=== PATIENT | female | born 1945 | race Caucasian/White ===

== ENCOUNTER 2017-11-04 15:06 | Emergency (ER) | payer OTHER ==
[~2017-11-04] VITALS: Ht 165.1 cm; Wt 86.2 kg
[2017-11-04] MEDS ORDERED: IBUPROFEN 200 MG TAB PO ONE (15:30)
[2017-11-04] MEDS ORDERED: ONDANSETRON HCL INJ 2 MG/ML VIAL IV ONE (15:30)
[2017-11-04] MEDS ORDERED: ACETAMINOPHEN 325 MG TAB PO ONE (15:30)
[2017-11-04] MEDS ORDERED: ZOFRAN ODT4 MG SL (16:21)
[2017-11-04] MEDS ORDERED: BROMFED DM COU118 ML PO (16:21)
[2017-11-04] MEDS ORDERED: TAMIFLU75 MG PO (16:21)
[2017-11-04 17:07] VITALS: BP 132/78
[2017-11-04] MEDS ORDERED: VASOTEC10 M1 (17:10)
[2017-11-04] MEDS ORDERED: METFORMIN HCL500 MG PO (17:11)
[2017-11-04] MEDS ORDERED: ZOLOFT100 MG (17:12)
[2017-11-04] MEDS ORDERED: CRESTOR10 MG (17:12)
== END 2017-11-04 16:40 | disposition home or self-care (01) ==
LOC: FSED 15:06
DX: R50.9 Fever, unspecified (principal); R05 Cough; J11.1 Influenza due to unidentified influenza virus with other respiratory manifestations
CPT/HCPCS: 87400; 99282; J2405

== ENCOUNTER 2019-05-23 11:49 | Emergency (ER) | payer MEDICARE, OTHER ==
[~2019-05-23] VITALS: Ht 165.1 cm; Wt 86.2 kg
[~2019-05-23 11:49] MED LIST: BROMFED DM COU118 ML PO; CRESTOR10 MG; METFORMIN HCL500 MG PO; TAMIFLU75 MG PO; VASOTEC10 M1; ZOFRAN ODT4 MG SL; ZOLOFT100 MG
--- OUTSIDE RECORDS SUMMARY | 2019-05-23 11:52 | XMS REPORT | Clinical Summary ---
Author Author [facility] Address Unknown Phone Unavailable Care Team Providers Care Director Education Name Role Phone Lorrie Persaud MD PCP Unavailable Allergies Comments Active Allergy Reactions Severity Noted Date ceftin Cefuroxime Axetil Rash Low 08/27/2007 Muscle pain Atorvastatin Other (See 03/10/2018 Comments) walnuts Other Anaphylaxis High 03/10/2018 Medications End Date Status Medication Sig Dispensed Refills Start Date Active metFORMIN (GLUCOPHAGE) Take 1,000 mg 0 1000 MG tablet by mouth 2 (two) times daily with breakfast and dinner. Active enalapril (VASOTEC) 20 MG Take 20 mg by 0 tablet mouth once at bedtime . Active rosuvastatin (CRESTOR) 20 Take 20 mg by 0 MG tablet mouth daily. Active sertraline (ZOLOFT) 100 Take 100 mg 0 MG tablet by mouth once at bedtime . Active multivitamin capsule Take 1 0 capsule by mouth daily. Active dulaglutide (TRULICITY) Inject 0 1.5 mg/0.5 mL PnIj subcutaneousl y once a week. 07/30/2018 Discontinued DULAGLUTIDE (TRULICITY Inject 0 SUBQ) subcutaneousl y. 07/30/2018 Discontinued meloxicam (MOBIC) 15 MG Take 15 mg by 0 tablet mouth daily. 08/09/2018 HYDROcodone-acetaminophen Take 1 tablet 30 tablet 0 (NORCO 5-325) 5-325 mg by mouth 8 per tablet every 6 (six) hours as needed for Pain for up to 10 days. Max Daily Amount: 4 tablets 07/30/2018 Discontinued docusate sodium (COLACE) Take 1 20 capsule 0 100 MG capsule capsule (100 8 mg total) by mouth 2 (two) times daily as needed for up to 10 days. 08/09/2018 docusate sodium (COLACE) Take 1 20 capsule 0 100 MG capsule capsule (100 8 mg total) by mouth 2 (two) times daily as needed for up to 10 days. 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 arthritis 03/16/2018 Encounters Care Team Description Date Type Specialty 07/30/2018 Travel Sridevi Barclay NP 07/29/2018 Anesthesia Event Nakul Trujillo MD DISCECTOMY,ANTERIOR CERVICAL W/FUSION 07/29/2018 Surgery Nakul Trujillo MD Pre-op testing; Myeloradiculopathy 07/29/2018 Hospital General Internal Medicine - Encounter 07/30/2018 07/29/2018 Sridevi Guerra NP 07/26/2018 Anesthesia Pre-Admission Testing Event Nakul Trujillo MD 07/26/2018 Hospital Encounter Nakul Trujillo MD Pre-op testing 07/26/2018 Hospital Pre-Admission Testing Encounter Nakul Trujillo MD Pre-op testing (Primary Dx); Myeloradiculopathy 07/20/2018 Orders Only Family Medicine after 05/22/2018 Family History Medical History Relation Name Comments Diabetes Father Heart disease Father Atrial fibrillation Mother COPD Mother Relation Name Status Comments Father Mother Social History Date Tobacco Use Types Packs/Day Years Used Never Smoker Smokeless Tobacco: Never Used Alcohol Use Drinks/Week oz/Week Comments Yes occ Sex Assigned at Date Recorded Not on file Industry Job Start Date Occupation Not on file Not on file Not on file Travel End Travel History Travel Start No recent travel history available. Last Filed Vital Signs Time Taken Vital Sign Reading 07/30/2018 3:26 PM CDT Blood Pressure 140/58 07/30/2018 3:26 PM CDT Pulse 57 07/30/2018 11:33 AM CDT Temperature 36.6 C (97.9 F) 07/30/2018 3:26 PM CDT Respiratory Rate 17 07/30/2018 3:26 PM CDT Oxygen Saturation 98% - Inhaled Oxygen - Concentration 07/29/2018 8:23 AM CDT Weight 88.5 kg (195 lb 1.7 oz) 07/29/2018 8:23 AM CDT Height 165.1 cm (5' 5") 07/29/2018 8:23 AM CDT Body Mass Index 32.47 Plan of Treatment Health Maintenance Due Date Last Done Comments INFLUENZA VACCINE 06/28/2018 Implants Device Identifier Shelf Expiration Date Model / Serial / Lot Implanted Type Area Manufactur er 12/22/2019 [id number] / / [id number] Flseal Vhsd Full Strlprep 10ml Cement/Gonzalo N/A: Spine MIJARES:BIO [id number] - [id number] ler/Adhesi Cervical SCI Implanted: Qty: 2 on 07/29/2018 by Nakul Lawson MD 12/24/[id number] / / [id number] Bone Grft Vitoss Ba2x 2.5cc - Cement/Gonzalo N/A: Spine ORTHOVITA [id number] ler/Adhesi Cervical Implanted: Qty: 1 on 07/29/2018 by Nakul Lawson MD 10/14/2023 506-03-122 / / [id number] Scr Bone 5.0x22mm 506-03-122 - Joints Left: Shoulder DJ [id number] SURG:ENCOR Implanted: Qty: 1 on 03/16/2018 by Torsten Russell MD MED:ENCORE ORTH 01/06/2024 [id number] / / [id number] Baseplt Glenoid Rsp 508-32-104 - Joints Left: Shoulder DJ [id number] SURG:ENCOR Implanted: Qty: 1 on 03/16/2018 by Torsten Russell MD MED:ENCORE ORTH 01/02/2024 [id number] / / [id number] Scr Bone 5.0x26mm 506-03-126 - Joints Left: Shoulder DJ [id number] SURG:ENCOR Implanted: Qty: 1 on 03/16/2018 by Torsten Russell MD MED:ENCORE ORTH 12/03/2023 [id number] / / [id number] Head Glenoid Sz 32 4 508-32-103 - Joints Left: Shoulder DJ [id number] SURG:ENCOR Implanted: Qty: 1 on 03/16/2018 by Torsten Russell MD MED:ENCORE ORTH 01/27/2023 509-00-032 / / [id number] Insrt Hum Socket 32mm 509-00-032 - Joints Left: Shoulder DJ [id number] SURG:ENCOR Implanted: Qty: 1 on 03/16/2018 by Torsten Russell MD MED:ENCORE ORTH 12/25/2023 530-10-108 / / [id number] Stem Hum Rev [id number] 530-08-108 - Joints Left: Shoulder DJ [id number] SURG:ENCOR Implanted: Qty: 1 on 03/16/2018 by Torsten Russell MD MED:ENCORE ORTH 07/20/2022 [id number] / / [id number] Cage Cerv Triti [id number] Spine N/A: Spine CHRISTOPHER:ST - [id number] Cervical PORSHA Implanted: Qty: 1 on 07/29/2018 by Nakul Joyner MD 09/07/2022 [id number] / / [id number] Cage Cerv Triti [id number] Spine N/A: Spine CHRISTOPHER:ST - [id number] Cervical PORSHA Implanted: Qty: 1 on 07/29/2018 by Nakul Joyner MD 07/20/2022 [id number] / / [id number] Cage Cerv Triti [id number] Spine N/A: Spine CHRISTOPHER:ST - [id number] Cervical PORSHA Implanted: Qty: 1 on 07/29/2018 by Nakul Joyner MD [id number] / / Plt Ant Cerv Aviator 42mm [id number] Spine N/A: Spine CHRISTOPHER:ST [id number] - [id number] Cervical PORSHA Implanted: Qty: 1 on 07/29/2018 by Nakul Joyner MD [id number] / / Scr Keith Ang Self Drl 4.0x16mm Spine N/A: Spine CHRISTOPHER:ST [id number] - [id number] Cervical PORSHA Implanted: Qty: 7 on 07/29/2018 by Nakul Joyner MD [id number] / / Scr Bone Keith Ang St 4.85t47mb Spine N/A: Spine CHRISTOPHER:ST [id number] - [id number] Cervical PORSHA Implanted: Qty: 1 on 07/29/2018 by SPINE Nakul Trujillo MD [id number] / / Scr Keith Ang Self Drl 4.0x16mm Spine N/A: Spine CHRISTOPHER:ST [id number] - [id number] Cervical PORSHA Implanted: Qty: 1 on 07/29/2018 by Nakul Joyner MD 04/23/2023 506-03-130 / / [id number] Rsp Bone Screw Locking Left: Shoulder DJ ORTHO Implanted: Qty: 1 on 03/16/2018 by Torsten Bravo MD 12/29/2023 506-03-130 / / [id number] Rsp Bone Screw Locking Left: Shoulder DJ ORTHO Implanted: Qty: 1 on 03/16/2018 by Torsten Bravo MD Procedures Comments Procedure Name Priority Date/Time Associated Diagnosis RHYTHM STRIP - SCAN 08/03/2018 9:10 AM THERAPIST XR SPINE CERVICAL 2 OR 3 STAT 07/30/2018 VIEWS 4:20 PM CDT CBC W/PLT COUNT & AUTO Routine 07/30/2018 DIFFERENTIAL 2:01 PM CDT BASIC METABOLIC PANEL (7) Routine 07/30/2018 2:01 PM CDT CBC W/PLT COUNT & AUTO Routine 07/30/2018 DIFFERENTIAL 2:01 PM CDT POCT-GLUCOSE METER Routine 07/30/2018 7:51 AM CDT POCT-GLUCOSE METER Routine 07/29/2018 9:11 PM CDT POCT-GLUCOSE METER Routine 07/29/2018 5:09 PM CDT FL PLATE DRYING MACHINE TENDER IN OR 30 Routine 07/29/2018 MINUTE INCREMENTS 2:00 PM CDT SHORT LATENCY SEP ALL Routine 07/29/2018 LIMBS 1:55 PM CDT TISSUE EXAM AP Routine 07/29/2018 12:55 PM CDT FL PLATE DRYING MACHINE TENDER IN OR 30 Routine 07/29/2018 MINUTE INCREMENTS 12:03 PM CDT PROCEDURE W/ C-ARM 07/29/2018 Myeloradiculopathy 9:59 AM CDT Case Notes 3 HRS Special Needs (SUPINE POSITION, NEURO-LOBO TORING: MEP, C-ARM, MICROSCOPE , REGULAR OR TABLE, CHRISTOPHER) PROCEDURE W/ 07/29/2018 Myeloradiculopathy INTRAOPERATIVE 9:59 AM CDT NEUROMONITORING Case Notes 3 HRS Special Needs (SUPINE POSITION, NEURO-LOBO TORING: MEP, C-ARM, MICROSCOPE , REGULAR OR TABLE, CHRISTOHPER) CORPECTOMY,CERVICAL W/ 07/29/2018 Myeloradiculopathy INTERNAL FIXATION 9:59 AM CDT Case Notes 3 HRS Special Needs (SUPINE POSITION, NEURO-LOBO TORING: MEP, C-ARM, MICROSCOPE , REGULAR OR TABLE, CHRISTOPHER) DISCECTOMY,ANTERIOR 07/29/2018 Myeloradiculopathy CERVICAL W/FUSION 9:59 AM CDT Case Notes 3 HRS Special Needs (SUPINE POSITION, NEURO-LOBO TORING: MEP, C-ARM, MICROSCOPE , REGULAR OR TABLE, CHRISTOPHER) POCT-GLUCOSE METER Routine 07/29/2018 8:28 AM CDT TRANSFUSION SERVICE 07/27/2018 REPORT - SCAN 6:11 PM CDT CBC W/PLT COUNT & AUTO Routine 07/26/2018 Pre-op testing DIFFERENTIAL 2:26 PM CDT TYPE AND SCREEN, Routine 07/26/2018 Pre-op testing AUTOMATED 2:26 PM CDT BASIC METABOLIC PANEL (7) Routine 07/26/2018 Pre-op testing 2:26 PM CDT CBC W/PLT COUNT & AUTO Routine 07/26/2018 Pre-op testing DIFFERENTIAL 2:26 PM CDT URINALYSIS W/ REFLEX Routine 07/26/2018 Pre-op testing URINE CULTURE 2:26 PM CDT PROTHROMBIN TIME/INR Routine 07/26/2018 Pre-op testing 2:26 PM CDT APTT Routine 07/26/2018 Pre-op testing 2:26 PM CDT after 05/22/2018 Results * RHYTHM STRIP - SCAN (08/03/2018 9:10 AM THERAPIST) Narrative Performed At * XR spine cervical 2 or 3 views (07/30/2018 4:20 PM CDT) Specimen Narrative Performed At FINAL REPORT [facility] Cervical spine two images Discussion: ACDF changes are seen from C4 to C7. There is normal alignment. Signed: Jossie Garcia MD Report Verified Date/Time:07/30/2018 16:51:33 Reading Location: [facility] B1 C013W Consult Reading Room Procedure Note Interface, External Ris In - 07/30/2018 4:59 PM CDT FINAL REPORT Cervical spine two images Discussion: ACDF changes are seen from C4 to C7. There is normal alignment. Signed: Jossie Garcia MD Report Verified Date/Time: 07/30/2018 16:51:33 Reading Location: [facility] B1 C013W Consult Reading Room Performing Organization Address City/State/Zipcode Phone Number [facility] * CBC with platelet count + automated diff (07/30/2018 2:01 PM CDT) Only the most recent of 2 results within the time period is included. WBC 10.4 3.5 - 10.5 K/L [facility] RBC 4.01 3.93 - 5.22 M/L [facility] Hemoglobin 10.9 (L) 11.2 - 15.7 GM/DL [facility] Hematocrit 35.0 34.1 - 44.9 % [facility] MCV 87.3 79.4 - 94.8 fL [facility] MCH 27.2 25.6 - 32.2 pg [facility] MCHC 31.1 (L) 32.2 - 35.5 GM/DL [facility] RDW 13.3 11.7 - 14.4 % [facility] Platelets 262 150 - 450 K/CU MM [facility] MPV 9.5 9.4 - 12.3 fL [facility] nRBC 0 0 - 0 /100 WBC [facility] % Neutros 71 % [facility] % Lymphs 19 % [facility] % Monos 9 % [facility] % Eos 1 % [facility] % Baso 0 % [facility] # Neutros 7.42 (H) 1.56 - 6.13 K/L [facility] # Lymphs 1.97 1.18 - 3.74 K/L [facility] # Monos 0.94 (H) 0.24 - 0.36 K/L [facility] # Eos 0.05 0.04 - 0.36 K/L [facility] # Baso 0.02 0.01 - 0.08 K/L [facility] Immature 0 0 - 1 % [facility] Granulocytes-Relative [facility] Specimen Blood Performing Organization Address City/State/Zipcode Phone Number [facility] [address] [place] [address] MEDICAL CENTER * Basic Metabolic Panel (07/30/2018 2:01 PM CDT) Only the most recent of 2 results within the time period is included. Sodium 136 136 - 145 meq/L [facility] Potassium 4.5 3.5 - 5.1 meq/L [facility] Chloride 103 98 - 107 meq/L [facility] CO2 24 22 - 29 meq/L [facility] BUN 10 7 - 21 mg/dL [facility] Creatinine 0.73 0.57 - 1.25 mg/dL [facility] Glucose 244 (H) 70 - 105 mg/dL [facility] Calcium 8.2 (L) 8.4 - 10.2 mg/dL [facility] EGFR 79Comment: ESTIMATED GFR IS mL/min/1.73 sq m [facility] NOT ACCURATE CREATININE [facility] CLEARANCE IN PREDICTING GLOMERULAR FILTRATION RATE. ESTIMATED GFR IS NOT APPLICABLE FOR DIALYSIS PATIENTS. Specimen Blood Performing Organization Address City/State/Zipcode Phone Number [facility] [address] [place] [address] [phone] [facility] * POC-Glucose meter (07/30/2018 7:51 AM CDT) Only the most recent of 4 results within the time period is included. POC-Glucose Meter 136 (H)Comment: TESTED AT 70 - 110 mg/dL [address] [address] Specimen Blood Performing Organization Address City/State/Zipcode Phone Number [facility] [address] [place], [place] [phone] [facility] * [place] radiologic technology teacher in or 30 minute increments (07/29/2018 2:00 PM CDT) Only the most recent of 2 results within the time period is included. Specimen Narrative Performed At FINAL REPORT [facility] Three fluoroscopic cervical spine images. Fluoroscopy time 15.9 seconds. Fluoroscopy was not performed by the undersigned. Refer to procedure notes for diagnostic and therapeutic detail. Signed: Jossie Garcia MD Report Verified Date/Time:07/29/2018 14:57:07 Reading Location: [address] Consult Reading Room Procedure Note Interface, External Ris In - 07/29/2018 2:59 PM CDT FINAL REPORT Three fluoroscopic cervical spine images. Fluoroscopy time 15.9 seconds. Fluoroscopy was not performed by the undersigned. Refer to procedure notes for diagnostic and therapeutic detail. Signed: Jossie Garcia MD Report Verified Date/Time: 07/29/2018 14:57:07 Reading Location: [facility] C013W Consult Reading Room Performing Organization Address City/State/Zipcode Phone Number [facility] * SHORT LATENCY SEP ALL LIMBS (07/29/2018 1:55 PM CDT) Specimen Narrative Performed At INTRAOPERATIVE MONITORING REPORT [facility] Patient name: Feli Bradshaw [facility] Surgery Date: 07/29/2018 [employer] Pro: [id number] Monitoring began at 1039 and ended at 1359 Surgeon: Nakul Trujillo M.D. Examining Neurologist: Anne Cortez M.D.; Joyce Farfan M.D. Monitoring Technologist: FRAN Moncada Procedure: ACDF C4-7 Stimulation Parameters: Ulnar nerves individually stimulated at the wrist Rate 4.7Hz, Intensity 35mA, Duration 0.3ms Posterior Tibial nerves individually stimulated at the ankle Rate 4.7Hz, Intensity 70mA, Duration 0.3ms Filters 30-500Hz, Notch Off Monopolar Prass Probe Rate 2.79 Hz, Intensity 1-10 mA, Duration 0.2ms Recording Parameters: Free-running EEG recorded with bipolar derivation, using modified International 10/20 placements: C3-FPZ, C4-FPZ Recording Parameters: EP1, EP2, CV, CP3, CP4, CPz, and FPz Description : Intraoperative neurophysiological monitoring was performed using a combination of upper and lower extremity somatosensory evoked potentials and free-running EEGs. A real-time connection with the examining neurologist was established and maintained throughout the operative procedure by the monitoring technologist. Upper extremity somatosensory evoked potentials were recorded centrally at the cervical and cortical levels following ulnar nerve stimulation. Lower extremity somatosensory evoked potentials were recorded centrally at the cervical and cortical levels following posterior tibial nerve stimulation. SSEPs were well formed and reproducible in all extremities at baselines; surgeon aware of all baselines. All SSEP responses were stable with baselines at closing. Surgeon aware of all responses in real-time throughout the case and at closing. Free-running EEG remained symmetrical throughout the procedure with no focal changes noted to occur. Conclusion : These results suggest the absence of untoward, secondary effects on the posterior column function as a consequence of this surgical procedure. Anne Cortez M.D.; Joyce Farfan M.D. G54.9 Procedure Note Interface, External Ris In - 07/30/2018 4:26 PM CDT INTRAOPERATIVE MONITORING REPORT Patient name: Feli Bradshaw [facility] Surgery Date: 07/29/2018 [employer] Pro: [id number] Monitoring began at 1039 and ended at 1359 Surgeon: Nakul Trujillo M.D. Examining Neurologist: Anne Cortez M.D.; Joyce Farfan M.D. Monitoring Technologist: FRAN Moncada Procedure: ACDF C4-7 Stimulation Parameters: Ulnar nerves individually stimulated at the wrist Rate 4.7Hz, Intensity 35mA, Duration 0.3ms Posterior Tibial nerves individually stimulated at the ankle Rate 4.7Hz, Intensity 70mA, Duration 0.3ms Filters 30-500Hz, Notch Off Monopolar Prass Probe Rate 2.79 Hz, Intensity 1-10 mA, Duration 0.2ms Recording Parameters: Free-running EEG recorded with bipolar derivation, using modified International 10/20 placements: C3-FPZ, C4-FPZ Recording Parameters: EP1, EP2, CV, CP3, CP4, CPz, and FPz Description : Intraoperative neurophysiological monitoring was performed using a combination of upper and lower extremity somatosensory evoked potentials and free-running EEGs. A real-time connection with the examining neurologist was established and maintained throughout the operative procedure by the monitoring technologist. Upper extremity somatosensory evoked potentials were recorded centrally at the cervical and cortical levels following ulnar nerve stimulation. Lower extremity somatosensory evoked potentials were recorded centrally at the cervical and cortical levels following posterior tibial nerve stimulation. SSEPs were well formed and reproducible in all extremities at baselines; surgeon aware of all baselines. All SSEP responses were stable with baselines at closing. Surgeon aware of all responses in real-time throughout the case and at closing. Free-running EEG remained symmetrical throughout the procedure with no focal changes noted to occur. Conclusion : These results suggest the absence of untoward, secondary effects on the posterior column function as a consequence of this surgical procedure. Anne Cortez M.D.; Joyce Farfan M.D. G54.9 Performing Organization Address City/[facility]/Zipcode Phone Number [facility] * Tissue Exam (07/29/2018 12:55 PM CDT) Case Report Surgical Pathology [facility] Case: [id number] Authorizing Provider:Nakul Trujillo MDCollected: 07/29/2018 1255 Ordering Location: [facility] PERIOPERATIVE Received: 07/29/2018 1350 SERVICES Pathologist: Preet Ivy MD Specimen:Intervertebra l Disc, C4-C7 DIAGNOSIS VERTEBRAL COLUMN, [facility] INTERVERTEBRAL DISC, [facility] DISCECTOMY: FRAGMENTS OF FIBROCARTILAGE WITH MILD DEGENERATIVE CHANGES FRAGMENTS OF BONE WITH TRILINEAGE MARROW ELEMENTS Signing Pathologist Direct Phone Line: [phone] CPT Code(s) 47809; 92881 [facility] CLINICAL HISTORY Myeloradiculopathy [facility] SPECIMEN SOURCE Intervertebral disc C4-C7 [facility] GROSS DESCRIPTION The specimen is received in [facility] saline labeled with the [facility] patient's information and labeled "intervertebral disc C4-C7" and consists of multiple fragments of dumont-red fibrocartilaginous tissue measuring 2 x 2 x 0.8 cm in aggregate. Submitted entirely A1 for decalcification. CG/pl MICROSCOPIC DESCRIPTION Performed [facility] Specimen Tissue Performing Organization Address City/[facility]/Zipcode Phone Number [place] [phone] [place] [address] MEDICAL CENTER * TRANSFUSION SERVICE REPORT - SCAN (07/27/2018 6:11 PM CDT) Narrative Performed At * Urinalysis w/Microscopic + Reflex to Culture (07/26/2018 2:26 PM CDT) Color, UA Yellow [facility] Clarity, UA Hazy [facility] Specific [place], UA 1.021 1.001 - 1.035 [facility] pH, UA 5.5 5.0 - 8.0 [facility] Protein, UA Negative Negative [facility] Glucose, UA 50 mg/dL (A) Negative [facility] Ketones, UA Negative Negative [facility] Bilirubin, UA Negative Negative [facility] Blood, UA Negative Negative [facility] Nitrite, UA Negative Negative [facility] Leukocytes, UA Moderate (A) Negative [facility] Urobilinogen, UA 0.2 0.2 - 1.0 mg/dL [facility] RBC, UA 1 /HPF [facility] WBC, UA 5 /HPF [facility] Bacteria, UA Few [facility] Mucus Occasional [facility] Squam Epithel, UA 1 /HPF [facility] Ca Oxalate Mery, UA Few [facility] Specimen Source [facility] Specimen Urine Performing Organization Address City/State/Zipcode Phone Number [facility] [address] [place] [address] [facility] * Type and screen, automated (07/26/2018 2:26 PM CDT) ABO/RH AUTOMATED (BEAKER) A POSITIVE [facility] Ab Scrn NEGATIVE [facility] Specimen Blood Performing Organization Address City/State/Zipcode Phone Number [facility] [address] [place], [place] [phone] [facility] * aPTT (07/26/2018 2:26 PM CDT) PTT 30.2 22.5 - 36.0 seconds [facility] Specimen Blood Performing Organization Address City/[facility]/Zipcode Phone Number [facility] [address] [place] [address] [facility] * Prothrombin time/INR (07/26/2018 2:26 PM CDT) Protime 14.0 11.7 - 14.7 seconds [facility] INR 1.1 <=5.9 [facility] Specimen Blood Narrative Performed At RECOMMENDED COUMADIN/WARFARIN INR THERAPY RANGES [facility] STANDARD DOSE: 2.0 - 3.0 Includes: PROPHYLAXIS for venous thrombosis, [facility] systemic embolization; TREATMENT for venous thrombosis and/or pulmonary embolus. HIGH RISK: Target INR is 2.5-3.5 for patients with mechanical heart valves. Performing Organization Address City/[facility]/Zipcode Phone Number [facility] [address] [place] [address] [facility] after 05/22/2018 Insurance Payer Benefit Subscriber ID Type Phone Address Plan / Group MEDICARE MEDICARE xxxxxxxxxxx Medicare PART A [facility] HMO/POS CARE POS SELECT CHOICE Advance Directives For more information, please contact: [address] [address] Date Inactivated Comments Code Status Date Activated Full Code 07/29/2018 7:58 AM This code status was determined by: Patient 03/17/2018 3:10 PM Full Code 03/16/2018 2:17 PM This code status was determined by: Patient 03/16/2018 2:17 PM Full Code 03/16/2018 6:46 AM This code status was determined by: Patient
--- OUTSIDE RECORDS SUMMARY | 2019-05-23 11:52 | XMS REPORT ---
Author Author [facility] Address Unknown Phone Unavailable Care Team Providers Care Hosting Engineer Name Role Phone RUBEN MCMAHON Unavailable Unavailable MARYAN BRAVO Unavailable Unavailable Problems This patient has no known problems. Allergies, Adverse Reactions, Alerts This patient has no known allergies or adverse reactions. Medications This patient has no known medications. Results Test Description Test Time Test Comments Text Results Atomic Results Result Comments TISSUE EXAM 2018-08-03 18:19:00 Surgical Pathology Report Case: [id number] Authorizing Provider: Nakul Mcmahon MD Collected: 07/29/2018 1255 Ord ering Location: [facility] PERIOPERATIVE Received: 07/29/2018 1350 SERVICES Pathologist: Preet Ivy MD Specimen: Intervertebral Disc, C4-C7 VERTEBRAL COLUMN, INTERVERTEBRAL DISC, DISCECTOMY:FRAGMENTS OF FIBROCARTILAGE WITH MILD DEGENERATIVE CHANGESFRAGMENTS OF BONE WITH TRILINEAGE MARROW ELEMENTS Signing Pathologist Direct Phone Line: [phone] signed by Preet Ivy MD on 08/03/2018 at 6:19 [id number]; [id number] Intervertebral disc C4-C7The specimen is received in saline labeled with the patient's information and labeled "intervertebral disc C4-C7" and consists of multiple fragments of dumont-red fibrocartilaginous tissue measuring 2 x 2 x 0.8 cm in aggregate. Submitted entirely A1 for decalcification. CG/pl Performed RAD, SPINE, CERVICAL, 2 OR 3 VIEWS 2018-07-30 16:51:00 Reason for exam:->sp ACDF FINAL REPORT Cervical spine two images Discussion: ACDF changes are seen from C4 to C7. There is normal alignment. Signed: Jossie Garcia Verified Date/Time: 07/30/2018 16:51:33 Reading Location: [facility] C0[facility] Consult Reading Room T-LATENCY SPE, ALL LIMBS 2018-07-30 16:26:00 Reason for exam:->intra op neuro monitoring INTRAOPERATIVE MONITORING REPORT Patient name: Feli Bradshaw [facility] Surgery Date: 07/29/2018 Robyn Pro: [id number] Monitoring began at 1039 and ended at 1359 Surgeon: Nakul Mcmahon M.D. Examining Neurologist: Anne Cortez M.D.; Joyce Farfan M.D. Monitoring Technologist: FARN Moncada Procedure: ACDF C4-7 Stimulation Parameters: Ulnar nerves individually stimulated at the wristRate 4.7Hz, Intensity 35mA, Duration 0.3msPosterior Tibial nerves individually stimulated at the ankleRate 4.7Hz, Intensity 70mA, Duration 0.3msFilters 30-500Hz, Notch OffMonopolar Prass ProbeRate 2.79 Hz, Intensity 1-10 mA, Duration 0.2ms Recording Parameters:Free- running EEG recorded with bipolar derivation, using modified International 10/20 placements: C3-FPZ,C4-FPZRecording Parameters: EP1, EP2, CV, CP3, CP4, CPz, and FPz Description : Intraoperative neurophysiological monitoring was performed using a combination of upperand lower extremity somatosensory evoked potentials and free-running EEGs. A real-time connection withthe examining neurologist was established and maintained throughout the operative procedure by themonitoring technologist. Upper extremity somatosensory evoked potentials were recorded centrally at thecervical and cortical levels following ulnar nerve stimulation. Lower extremity somatosensory evokedpotentials were recorded centrally at the cervical and cortical levels following posterior tibial nervestimulation. SSEPs were well formed and reproducible in all extremities at baselines; surgeon aware of all baselines. All SSEPresponses were stable with baselines at closing. Surgeon aware of all responses in real-time throughout the case and atclosing. Free-running EEG remained symmetrical throughout the procedure with no focal changes noted tooccur. Conclusion :These results suggest the absence of untoward, secondary effects on the posterior columnfunction as a consequence of this surgical procedure. Anne Cortez M.D.; Joyce Farfan M.D.G54.9 C METABOLIC PANEL 2018-07-30 14:29:00 SODIUM (BEAKER) (test kpqe=775) 136 meq/L 136-145 POTASSIUM (BEAKER) (test gfow=880) 4.5 meq/L 3.5-5.1 CHLORIDE (BEAKER) (test qser=801) 103 meq/L 98-107 CO2 (BEAKER) (test ekyj=824) 24 meq/L 22-29 BLOOD UREA NITROGEN (BEAKER) (test ktbc=980) 10 mg/dL 7-21 CREATININE (BEAKER) (test zquw=790) 0.73 mg/dL 0.57-1.25 GLUCOSE RANDOM (BEAKER) (test ooev=135) 244 mg/dL 70-105 CALCIUM (BEAKER) (test stcg=116) 8.2 mg/dL 8.4-10.2 EGFR (BEAKER) (test vmgh=1702) 79 mL/min/1.73 sq m ESTIMATED GFR IS NOT ACCURATE CREATININE CLEARANCE IN PREDICTING GLOMERULAR FILTRATION RATE. ESTIMATED GFR IS NOT APPLICABLE FOR DIALYSIS PATIENTS. CBC W/PLT COUNT & AUTO [id number] 14:15:00* Test Item Value Reference Range Comments WHITE BLOOD CELL COUNT (BEAKER) (test iapw=328) 10.4 K/ L 3.5-10.5 RED BLOOD CELL COUNT (BEAKER) (test jjnf=327) 4.01 M/ L 3.93-5.22 HEMOGLOBIN (BEAKER) (test yybf=932) 10.9 GM/DL 11.2-15.7 HEMATOCRIT (BEAKER) (test rbzh=633) 35.0 % 34.1-44.9 MEAN CORPUSCULAR VOLUME (BEAKER) (test jxao=980) 87.3 fL 79.4-94.8 MEAN CORPUSCULAR HEMOGLOBIN (BEAKER) (test gomx=066) 27.2 pg 25.6-32.2 MEAN CORPUSCULAR HEMOGLOBIN CONC (BEAKER) (test xrgg=420) 31.1 GM/DL 32.2-35.5 RED CELL DISTRIBUTION WIDTH (BEAKER) (test yfwg=313) 13.3 % 11.7-14.4 PLATELET COUNT (BEAKER) (test cwie=046) 262 K/CU MM 150-450 MEAN PLATELET VOLUME (BEAKER) (test tspr=344) 9.5 fL 9.4-12.3 NUCLEATED RED BLOOD CELLS (BEAKER) (test uvsg=935) 0 /100 WBC 0-0 NEUTROPHILS RELATIVE PERCENT (BEAKER) (test zymy=070) 71 % LYMPHOCYTES RELATIVE PERCENT (BEAKER) (test whtx=241) 19 % MONOCYTES RELATIVE PERCENT (BEAKER) (test gunj=104) 9 % EOSINOPHILS RELATIVE PERCENT (BEAKER) (test kecw=085) 1 % BASOPHILS RELATIVE PERCENT (BEAKER) (test elmr=606) 0 % NEUTROPHILS ABSOLUTE COUNT (BEAKER) (test yfcl=493) 7.42 K/ L 1.56-6.13 LYMPHOCYTES ABSOLUTE COUNT (BEAKER) (test beet=899) 1.97 K/ L 1.18-3.74 MONOCYTES ABSOLUTE COUNT (BEAKER) (test wrbn=239) 0.94 K/ L 0.24-0.36 EOSINOPHILS ABSOLUTE COUNT (BEAKER) (test qysb=569) 0.05 K/ L 0.04-0.36 BASOPHILS ABSOLUTE COUNT (BEAKER) (test kfzq=337) 0.02 K/ L 0.01-0.08 IMMATURE GRANULOCYTES-RELATIVE PERCENT (BEAKER) (test zqnd=0582) 0 % 0-1 POCT-GLUCOSE [id number] 08:04:00* Test Item Value Reference Range Comments POC-GLUCOSE METER (BEAKER) (test rtla=5240) 136 mg/dL 70-110 TESTED AT [place] [id number] [facility] [address] POCT-GLUCOSE [id number] 21:15:00* Test Item Value Reference Range Comments POC-GLUCOSE METER (BEAKER) (test fwfp=5750) 277 mg/dL 70-110 TESTED AT [address] [address] POCT-GLUCOSE [id number] 17:12:00* Test Item Value Reference Range Comments POC-GLUCOSE METER (BEAKER) (test ajmo=2625) 229 mg/dL 70-110 TESTED AT [address] [address] [place], TECHNICAL CONSULTANT IN OR/30 MINUTE [id number] 14:57:00Reason for exam:->neck painFINAL REPORT Three fluoroscopic cervical spine images. Fluoroscopy time 15.9 seconds. Fluoroscopy was not performed by the undersigned. Refer to procedure notes for diagnostic and therapeutic detail. Signed: Jossie Garcia Verified Date/Time: 07/29/2018 14:57:07 Reading Location: [place] [id number] Consult Reading Room , TECHNICAL CONSULTANT IN OR/30 MINUTE INCREMENTS 2018-07-29 12:05:00Reason for exam:->neck painFINAL REPORT Single lateral fluoroscopic image shows a screw at the C4 level. Report was called to Dr. Mcmahon in the operating room who was in agreement. Fluoroscopy time three seconds. Fluoroscopy was not performed by the undersigned. Signed: Jossie Garcia Verified Date/Time: 07/29/2018 12:05:53 Reading Location: [facility] Radiology Reading Room -GLUCOSE [id number] 08:33:00* Test Item Value Reference Range Comments POC-GLUCOSE METER (BELightera) (test fzoj=9557) 179 mg/dL 70-110 TESTED AT [facility] [address] [facility] [address] [id number] 15:32:00* Test Item Value Reference Range Comments PARTIAL THROMBOPLASTIN TIME (BEAKER) (test ymhl=602) 30.2 seconds 22.5-36.0 PROTHROMBIN TIME/[id number] 15:31:00* Test Item Value Reference Range Comments PROTIME (BEAKER) (test dkfa=270) 14.0 seconds 11.7-14.7 INR (BEAKER) (test rhwn=301) 1.1 <=5.9 RECOMMENDED COUMADIN/WARFARIN INR THERAPY RANGESSTANDARD DOSE: 2.0 - 3.0 Inclu parveen: PROPHYLAXIS for venous thrombosis, systemic embolization; TREATMENT for maite ous thrombosis and/or pulmonary embolus.HIGH RISK: Target INR is 2.5-3.5 for pat ients with mechanical heart valves.BASIC METABOLIC [id number] 15:30:00* Test Item Value Reference Range Comments SODIUM (BEAKER) (test hpqm=202) 139 meq/L 136-145 POTASSIUM (BEAKER) (test cvul=850) 4.8 meq/L 3.5-5.1 Specimen slightly hemolyzed CHLORIDE (BEAKER) (test glou=355) 100 meq/L 98-107 CO2 (BEAKER) (test flkw=130) 29 meq/L 22-29 BLOOD UREA NITROGEN (BEAKER) (test lvmg=530) 12 mg/dL 7-21 CREATININE (BEAKER) (test eyox=915) 0.77 mg/dL 0.57-1.25 Specimen slightly hemolyzed GLUCOSE RANDOM (BEAKER) (test vpob=674) 106 mg/dL 70-105 CALCIUM (BEAKER) (test xprf=188) 9.9 mg/dL 8.4-10.2 EGFR (BEAKER) (test dvjh=7536) 74 mL/min/1.73 sq m ESTIMATED GFR IS NOT ACCURATE CREATININE CLEARANCE IN PREDICTING GLOMERULAR FILTRATION RATE. ESTIMATED GFR IS NOT APPLICABLE FOR DIALYSIS PATIENTS. URINALYSIS W/ REFLEX URINE [id number] 15:20:00* Test Item Value Reference Range Comments COLOR (BEAKER) (test hckw=010) Yellow CLARITY (BEAKER) (test mrdg=777) Hazy SPECIFIC GRAVITY UA (BEAKER) (test nkeg=663) 1.021 1.001-1.035 PH UA (BEAKER) (test diar=094) 5.5 5.0-8.0 PROTEIN UA (BEAKER) (test pang=851) Negative Negative GLUCOSE UA (BEAKER) (test mqcd=530) 50 mg/dL Negative KETONES UA (BEAKER) (test tlch=035) Negative Negative BILIRUBIN UA (BEAKER) (test tuiw=320) Negative Negative BLOOD UA (BEAKER) (test zdvh=809) Negative Negative NITRITE UA (BEAKER) (test nkbi=563) Negative Negative LEUKOCYTE ESTERASE UA (BEAKER) (test qxdw=155) Moderate Negative UROBILINOGEN UA (BEAKER) (test eojg=420) 0.2 mg/dL 0.2-1.0 RBC UA (BEAKER) (test etlh=862) 1 /HPF WBC UA (BEAKER) (test bepb=404) 5 /HPF BACTERIA (BEAKER) (test zafa=184) Few MUCUS (BEAKER) (test wpja=6952) Occasional SQUAMOUS EPITHELIAL (BEAKER) (test ajvx=216) 1 /HPF CALCIUM OXALATE CRYSTALS (BEAKER) (test gitj=429) Few SOURCE(BEAKER) (test xyqw=8203) CBC W/PLT COUNT & AUTO [id number] 15:09:00* Test Item Value Reference Range Comments WHITE BLOOD CELL COUNT (BEAKER) (test tsiz=480) 9.7 K/ L 3.5-10.5 RED BLOOD CELL COUNT (BEAKER) (test dbnn=112) 5.02 M/ L 3.93-5.22 HEMOGLOBIN (BEAKER) (test wyzh=033) 13.7 GM/DL 11.2-15.7 HEMATOCRIT (BEAKER) (test lgsb=438) 42.6 % 34.1-44.9 MEAN CORPUSCULAR VOLUME (BEAKER) (test ibzq=555) 84.9 fL 79.4-94.8 MEAN CORPUSCULAR HEMOGLOBIN (BEAKER) (test lasl=622) 27.3 pg 25.6-32.2 MEAN CORPUSCULAR HEMOGLOBIN CONC (BEAKER) (test fhyp=170) 32.2 GM/DL 32.2-35.5 RED CELL DISTRIBUTION WIDTH (BEAKER) (test hxhc=398) 13.2 % 11.7-14.4 PLATELET COUNT (BEAKER) (test gvzh=922) 301 K/CU MM 150-450 MEAN PLATELET VOLUME (BEAKER) (test qbup=580) 9.5 fL 9.4-12.3 NUCLEATED RED BLOOD CELLS (BEAKER) (test zfyc=763) 0 /100 WBC 0-0 NEUTROPHILS RELATIVE PERCENT (BEAKER) (test ojpp=052) 57 % LYMPHOCYTES RELATIVE PERCENT (BEAKER) (test anbj=384) 34 % MONOCYTES RELATIVE PERCENT (BEAKER) (test ckvg=015) 6 % EOSINOPHILS RELATIVE PERCENT (BEAKER) (test yhme=512) 2 % BASOPHILS RELATIVE PERCENT (BEAKER) (test qlwn=283) 0 % NEUTROPHILS ABSOLUTE COUNT (BEAKER) (test aygy=989) 5.51 K/ L 1.56-6.13 LYMPHOCYTES ABSOLUTE COUNT (BEAKER) (test ksxt=301) 3.33 K/ L 1.18-3.74 MONOCYTES ABSOLUTE COUNT (BEAKER) (test lpde=655) 0.60 K/ L 0.24-0.36 EOSINOPHILS ABSOLUTE COUNT (BEAKER) (test poax=908) 0.16 K/ L 0.04-0.36 BASOPHILS ABSOLUTE COUNT (BEAKER) (test knad=637) 0.04 K/ L 0.01-0.08 IMMATURE GRANULOCYTES-RELATIVE PERCENT (BEAKER) (test ilps=8908) 0 % 0-1 TISSUE [id number] 13:05:00Surgical Pathology Report Case: [id number] Authorizing Provider: Torsten Bravo, Collected: 03/16/2018 [place] Ordering Location: [facility] PERIOPERATIVE Received: 03/16/2018 1046 SERVICES Pathologist: Dmitry Vivar MD Specimen: Humerus, Left BONE, LEFT HUMERUS, ARTHROPLASTY: -OSTEOARTHRITIS Signing Pathologist Direct Phone Line: [phone] signed by Dmitry Vivar MD on 03/24/2018 at 1:05 [id number] of left shoulder regionLeft humerusSpecimen is received in a fluidless container labeled with the patient's information and labeled "left humerus" and consists of a shaved humeral head measuring 4 x 3.5 x 0.3 cm and three fragments of bone measuring 4 x 2.5 x 1 cm in the container. The surface has distinct osteophyte formation throughout.There is no soft tissue present. Toll Gate Tender sections are submitted as follows: A1, A2, bone submitted for decalcification. CG/ewThe sections show reduplication of the tidemark with eburnation and osteophyte formation.POCT-GLUCOSE [id number] 07:58:00* Test Item Value Reference Range Comments POC-GLUCOSE METER (BEAKER) (test edhi=2445) 127 mg/dL 70-110 TESTED AT [address] [address] BASIC METABOLIC [id number] 05:20:00* Test Item Value Reference Range Comments SODIUM (BEAKER) (test gonz=004) 136 meq/L 136-145 POTASSIUM (BEAKER) (test bpng=813) 4.1 meq/L 3.5-5.1 CHLORIDE (BEAKER) (test xhih=460) 101 meq/L 98-107 CO2 (BEAKER) (test uexk=395) 27 meq/L 22-29 BLOOD UREA NITROGEN (BEAKER) (test zztc=610) 12 mg/dL 7-21 CREATININE (BEAKER) (test ypdj=130) 0.60 mg/dL 0.57-1.25 GLUCOSE RANDOM (BEAKER) (test esql=454) 125 mg/dL 70-105 CALCIUM (BEAKER) (test jdtt=501) 8.5 mg/dL 8.4-10.2 EGFR (BEAKER) (test noxs=3436) 99 mL/min/1.73 sq m ESTIMATED GFR IS NOT ACCURATE CREATININE CLEARANCE IN PREDICTING GLOMERULAR FILTRATION RATE. ESTIMATED GFR IS NOT APPLICABLE FOR DIALYSIS PATIENTS. CBC (HEMOGRAM ONLY)2018-03-17 04:53:00* Test Item Value Reference Range Comments WHITE BLOOD CELL COUNT (BEAKER) (test rdft=224) 11.5 K/ L 3.5-10.5 RED BLOOD CELL COUNT (BEAKER) (test pcqn=007) 3.90 M/ L 3.93-5.22 HEMOGLOBIN (BEAKER) (test chpn=925) 11.0 GM/DL 11.2-15.7 HEMATOCRIT (BEAKER) (test sntq=408) 33.4 % 34.1-44.9 MEAN CORPUSCULAR VOLUME (BEAKER) (test hnmb=115) 85.6 fL 79.4-94.8 MEAN CORPUSCULAR HEMOGLOBIN (BEAKER) (test qecc=557) 28.2 pg 25.6-32.2 MEAN CORPUSCULAR HEMOGLOBIN CONC (BEAKER) (test mzkm=371) 32.9 GM/DL 32.2-35.5 RED CELL DISTRIBUTION WIDTH (BEAKER) (test fgxw=095) 13.3 % 11.7-14.4 PLATELET COUNT (BEAKER) (test tlgz=939) 249 K/CU MM 150-450 MEAN PLATELET VOLUME (BEAKER) (test gvmt=769) 9.6 fL 9.4-12.3 NUCLEATED RED BLOOD CELLS (BEAKER) (test yols=995) 0 /100 WBC 0-0 POCT-GLUCOSE [id number] 21:05:00* Test Item Value Reference Range Comments POC-GLUCOSE METER (BEAKER) (test rzis=1553) 234 mg/dL 70-110 TESTED AT [facility] [address] [facility] [address] POCT-GLUCOSE [id number] 16:19:00* Test Item Value Reference Range Comments POC-GLUCOSE METER (BEAKER) (test bcac=3690) 234 mg/dL 70-110 TESTED AT [facility] [address] [facility] [address] BASIC METABOLIC [id number] 11:57:00* Test Item Value Reference Range Comments SODIUM (BEAKER) (test eqfp=712) 137 meq/L 136-145 POTASSIUM (BEAKER) (test hzyt=864) 3.5 meq/L 3.5-5.1 CHLORIDE (BEAKER) (test taul=969) 106 meq/L 98-107 CO2 (BEAKER) (test xalh=760) 21 meq/L 22-29 BLOOD UREA NITROGEN (BEAKER) (test ydsc=732) 11 mg/dL 7-21 CREATININE (BEAKER) (test ipgi=282) 0.66 mg/dL 0.57-1.25 GLUCOSE RANDOM (BEAKER) (test xgxw=249) 165 mg/dL 70-105 CALCIUM (BEAKER) (test rklk=479) 8.3 mg/dL 8.4-10.2 EGFR (BEAKER) (test twnc=5645) 89 mL/min/1.73 sq m ESTIMATED GFR IS NOT ACCURATE CREATININE CLEARANCE IN PREDICTING GLOMERULAR FILTRATION RATE. ESTIMATED GFR IS NOT APPLICABLE FOR DIALYSIS PATIENTS. RAD, SHOULDER, COMPLETE (MIN 2 VIEWS), [id number] 11:57:00True AP of joint. 15 degrees off center towards midline to get maximum joint space view.Reason for exam:->POSTOP xray in PACU, 1 view AP Only needed Left shoulderShould this be performed at the bedside?->YesPACUFINAL REPORT Shoulder, left, one view INDICATION: Postop. COMPARISON: None available IMPRESSION: Left shoulder arthroplasty changes are noted. Although assessment is limited on a single view, hardware alignment appears satisfactory, with no evident periprosthetic fracture. The bones appear demineralized. A chronic clavicular line degenerative changes are present. There are operative changes in the soft tissues with edema and gas. There are incidental vascular calcifications and degenerative spine changes. An intraoperative report was not requested for this exam. Please refer to the operative note for additional details. Signed: Natasha Watts MDReport Verified Date/Time: 03/16/2018 11:57:53 Reading Location: [facility] Radiology Reading Room GLOBIN AND HEMATOCRIT 2018-03-16 11:37:00* Test Item Value Reference Range Comments HEMOGLOBIN (BEAKER) (test rtyo=474) 11.8 GM/DL 11.2-15.7 HEMATOCRIT (BEAKER) (test lfww=977) 36.7 % 34.1-44.9 POCT-GLUCOSE [id number] 07:13:00* Test Item Value Reference Range Comments POC-GLUCOSE METER (BEAKER) (test nzrs=9070) 120 mg/dL 70-110 TESTED AT [facility] [address] [facility] [address]
[2019-05-23] MEDS ORDERED: SODIUM CHLORIDE 0.9% 1000ML 1,000 ML IV SCH (12:15)
[2019-05-23] MEDS ORDERED: SODIUM CHLORIDE 0.9% 1000ML 1,000 ML ONE ×2 (12:25→13:48)
--- NOTE | 2019-05-23 13:04 | Diagnostic Imaging Report ---
Exam: PA and lateral chest radiograph Clinical history: Weakness Findings: The cardiac size is mildly prominent. There is no evidence of pulmonary consolidation, pleural effusion, or pneumothorax. Postoperative changes are noted in bilateral shoulder and cervical spine. Impression: 1. Mild cardiomegaly. Signed by: Dr. Johnny Martines MD on 05/23/2019 1:01 PM
--- NOTE | 2019-05-23 13:30 | NUR ---
PT TO BE ADMITTED AND TRANSFERED TO [facility], PT AND FAMILY AWARE OF POC, PT VOICES NO COMPLAINTS AT THIS TIME.
[2019-05-23] MEDS ORDERED: SODIUM CHLORIDE 0.9% 1000 ML BAG IV STA (13:42)
--- NOTE | 2019-05-23 14:56 | NUR ---
[facility] CALLED FOR TRANSFER ETA 25MIN
[2019-05-23 15:15] VITALS: BP 130/67
--- NOTE | 2019-05-23 15:25 | NUR ---
ATTEMPTED TO CALL REPORT, NURSE REFUSED TO TAKE REPORT, STATED ROOM WAS DIRTY AND SHE WOULD CALL BACK, INFORMED NURSE EMS WAS IN ROUTE TO [facility].
--- NOTE | 2019-05-23 15:40 | NUR ---
REPORT TO ERWIN CANSECO ALL QUESTIONS ANSWERED.
== END 2019-05-23 15:19 | disposition other institution (70) ==
LOC: FSED 11:49
DX: R19.7 Diarrhea, unspecified (principal); E86.1 Hypovolemia; E11.65 Type 2 diabetes mellitus with hyperglycemia; E78.5 Hyperlipidemia, unspecified; F41.9 Anxiety disorder, unspecified; F32.9 Major depressive disorder, single episode, unspecified
CPT/HCPCS: 71046; 80048; 80076; 81003; 82553; 83605; 84484; 85025; 87400; 93005; 99284; J7030